=== PATIENT | male | born 1945 | race Hispanic/Latino ===

== ENCOUNTER → 2019-03-21 | Outpatient (CLI) | payer OTHER ==
[~2019-03-21] MED LIST: DILT240C93 PO; ROSU10TA22 PO
== END | disposition home or self-care (01) ==
LOC: RAH 09:23
PROVIDERS: ATTEND Family Medicine
DX: K76.0 Fatty (change of) liver, not elsewhere classified (principal); N28.1 Cyst of kidney, acquired
CPT/HCPCS: 76700; 76857

== ENCOUNTER → 2019-05-08 | Outpatient (CLI) | payer OTHER ==
[2019-05-08 16:00] LABS: BASOPHILS % (AUTO) 0.9 % (0.0-5.0); EOSINOPHILS % (AUTO) 0.6 % (0.0-8.0); HEMATOCRIT 44.1 % (42-54); LYMPHOCYTES % (AUTO) 28.9 % (21.0-51.0); MEAN CORPUSCULAR HGB CONC 34.2 g/dL (32.0-36.0); MEAN CORPUSCULAR VOLUME 93.6 fL (79-99); MONOCYTES % (AUTO) 11.6 % (3.0-13.0); NUCLEATED RED BLOOD CELLS 0.2 % (0.0-0.19); PLATELET COUNT (AUTO) 212 K/uL (130-400); RED BLOOD CELL COUNT(AUTO) 4.71 MIL/uL (4.50-6.20); RED CELL DISTRIBUTION WIDTH 13.2 % (11.0-15.5); WHITE BLOOD COUNT (AUTO) 5.3 K/uL (4.8-10.8)
[2019-05-08 16:14] LABS: ALBUMIN 4.1 g/dL (3.5-5.0); BILIRUBIN,TOTAL 0.3 mg/dL (0.2-1.0); CREATININE 1.2 mg/dL (0.5-1.5); TOTAL PROTEIN, SERUM 7.7 g/dL (6.0-8.3)
== END | disposition home or self-care (01) ==
LOC: LAB 15:30
PROVIDERS: ATTEND Urology
DX: Z12.5 Encounter for screening for malignant neoplasm of prostate (principal); N28.1 Cyst of kidney, acquired
CPT/HCPCS: 36415; 80053; 84153; 85025

== ENCOUNTER → 2019-05-10 | Outpatient (CLI) | payer OTHER ==
[~2019-05-10] MED LIST changes: +IOHEXOL-350 50ML VIAL IV ONE
== END | disposition home or self-care (01) ==
LOC: RAH 10:00
PROVIDERS: ATTEND Urology
DX: N28.1 Cyst of kidney, acquired (principal); N32.89 Other specified disorders of bladder
CPT/HCPCS: 74178; Q9967

== ENCOUNTER → 2019-12-27 | Outpatient (CLI) | payer OTHER ==
[~2019-12-27] MED LIST changes: -IOHEXOL-350 50ML VIAL IV ONE
== END | disposition home or self-care (01) ==
LOC: RAH 10:17
PROVIDERS: ATTEND Urology
DX: N28.1 Cyst of kidney, acquired (principal)
CPT/HCPCS: 76770

== ENCOUNTER → 2021-01-15 | Outpatient (CLI) | payer MEDICARE | END | disposition home or self-care (01) | LOC: RAH 14:31 | PROVIDERS: ATTEND Urology | DX: N28.1 Cyst of kidney, acquired (principal) | CPT/HCPCS: 76770 ==

== ENCOUNTER → 2023-07-12 | Outpatient (CLI) | payer MEDICARE | END | disposition home or self-care (01) | LOC: RAH 14:24 | PROVIDERS: ATTEND Urology | DX: N28.1 Cyst of kidney, acquired (principal); N32.89 Other specified disorders of bladder | CPT/HCPCS: 76770 ==

== ENCOUNTER 2023-08-17 09:26 | Emergency (ER) | payer MEDICARE ==
[~2023-08-17] VITALS: Ht 180.3 cm; Wt 83.9 kg
[2023-08-17 10:01] VITALS: BP 170/92; PULSE 88; RESP 16; O2SAT 98
[2023-08-17 10:01] LABS: HEMATOCRIT 46.5 % (42-54); MEAN CORPUSCULAR HEMOGLOBIN 31.7 pg (27.0-33.0); MEAN CORPUSCULAR HGB CONC 34.2 g/dL (32.0-36.0); MEAN CORPUSCULAR VOLUME 92.8 fL (79-99); RED BLOOD CELL COUNT(AUTO) 5.01 MIL/uL (4.50-6.20); RED CELL DISTRIBUTION WIDTH 12.5 % (11.0-15.5); WHITE BLOOD COUNT (AUTO) 6.7 K/uL (4.8-10.8)
[2023-08-17 10:07] LABS: CREATININE 1.1 mg/dL (0.5-1.5); POTASSIUM 3.5 mmol/L (3.5-5.1)
[2023-08-17] MEDS ORDERED: ONDANSETRON 4MG INJ ONE (10:14)
[2023-08-17] MEDS ORDERED: ONDANSETRON 4MG INJ IVP ONE (10:30)
[2023-08-17 11:04] LABS: MAGNESIUM 1.9 mg/dL (1.80-2.40); THYROID STIMULATING HORMONE 3.55 uIU/mL (0.36-3.74)
[2023-08-17 12:54] LABS: APPEARANCE,URINE CLEAR (CLEAR); BILIRUBIN,URINE NEGATIVE (NEGATIVE); COLOR,URINE LIGHT-YELLOW (YELLOW); GLUCOSE, URINE (UA) NEGATIVE (NEGATIVE); KETONES,URINE NEGATIVE (NEGATIVE); LEUKOCYTE ESTERASE ,URINE NEGATIVE Leu/uL (NEGATIVE); NITRATE,URINE NEGATIVE (NEGATIVE); OCCULT BLOOD,URINE NEGATIVE (NEGATIVE); PH,URINE 6.5 (5.0-8.0); PROTEIN,URINE 10 mg/dL (NEGATIVE); UROBILINOGEN,URINE 0.2 mg/dL (0.2-1.0)
[2023-08-17 12:56] LABS: ADD UA MICROSCOPIC YES
[2023-08-17] MEDS ORDERED: MECLIZINE HCL 25 MG TABLET PO ONE (13:00)
[2023-08-17 13:05] LABS: SQUAMOUS EPITHELIAL CELL,UR RARE /HPF (0-2); WBC,URINE 0-1 /HPF (0-1)
[2023-08-17] MEDS ORDERED: MECL-302 PO (15:00)
[2023-08-17] MEDS ORDERED: METO-296 PO (15:00)
== END 2023-08-17 16:45 | disposition home or self-care (01) ==
LOC: EDH 09:26
DX: R42 Dizziness and giddiness (principal); I10 Essential (primary) hypertension; E78.00 Pure hypercholesterolemia, unspecified
CPT/HCPCS: 99285; 96374; 70450; 71045; 84443; 83735; 84484; 80048; 85027; 81001; 36415; 93005; J2405

== ENCOUNTER → 2024-07-15 | Outpatient (CLI) | payer MEDICARE ==
[~2024-07-15] MED LIST changes: +MECL-302 PO; +METO-296 PO
--- NOTE | 2024-07-15 16:03 | HMCIMG ---
US RENAL SONOGRAM REASON: CYST OF KIDNEY ACQUIRED COMPARISON: None TECHNIQUE: Routine renal and bladder sonogram was performed. FINDINGS: Right kidney is 10 x 5.9 x 5.3 cm, left kidney is 10.8 x 5.6 x 4.8 cm. There is a 5.46 x 5.8 cm right renal cyst upper pole and a 2.8 cm right renal cyst lower pole. There is no mass, stone or hydronephrosis. There is some cortical thinning and increased echogenicity in both kidneys consistent with chronic renal disease. Urinary bladder appears unremarkable. Prevoid volume was 122 cc. Postvoid volume showed no residual. IMPRESSION: 1. 2 simple appearing right renal cysts, largest is upper pole on the right at 5.9 cm, stable to somewhat smaller than on previous exam 07/15/2024. 2. Mild renal cortical thinning and increased echogenicity consistent with a component of chronic renal disease.
== END | disposition home or self-care (01) ==
LOC: RAH 14:23
PROVIDERS: ATTEND Urology
DX: N28.1 Cyst of kidney, acquired (principal)
CPT/HCPCS: 76770